=== PATIENT | female | born 1985 | race American Indian/Alaskan Native ===

== ENCOUNTER 2017-05-13 12:21 | Emergency (ER) | payer MEDICAID ==
[2017-05-13 12:38] VITALS: BP 135/77; PULSE 110; RESP 18; TEMP 99; O2SAT 98
[2017-05-13] MEDS ORDERED: Oxycodone/Acetaminophen 5/325 mg Tab ONE ×2 (13:17→13:20)
[2017-05-13] MEDS: Oxycodone/Acetaminophen 5/325 mg Tab PO STA (13:18)
--- NOTE | 2017-05-13 13:40 | ED PDOC ---
HPI: General Adult Time Seen by Provider: 05/13/17 12:46 Chief Complaint (Nursing): Lower Extremity Problem/Injury Chief Complaint (Provider): Right foot pain History Per: Patient History/Exam Limitations: no limitations Onset/Duration Of Symptoms: Days (x 2 weeks) Current Symptoms Are (Timing): Still Present Additional Complaint(s): Ramona is a 31 y/o female who states for the past 2 weeks she has had atraumatic right foot pain. States for the past year having intermittent bilateral knee pain and ankle pain, which resolves spontaneously. Patient reports she used to be an avid runner. Denies fever, trauma, rash, numbness, tingling, and history of Lyme disease. PMD: Unknown Past Medical History Reviewed: Historical Data, Nursing Documentation, Vital Signs Vital Signs: Last Vital Signs Temp 99 F 05/13/17 12:35 Pulse 110 H 05/13/17 12:35 Resp 18 05/13/17 12:35 BP 135/77 05/13/17 12:35 Pulse Ox 98 05/13/17 16:38 - Family History Family History: States: Unknown Family Hx - Home Medications Home Medications: Ambulatory Orders Medication Instructions Recorded Acetaminophen with Codeine 1 - 2 each PO Q6 PRN #12 tablet 05/13/17 [Tylenol with Codeine #3 Tablet] Cephalexin [cephalexin] 500 mg PO Q6 #28 cap 05/13/17 Naproxen [Naprosyn] 500 mg PO BID PRN #30 tab 05/13/17 - Allergies Allergies/Adverse Reactions: Allergies Allergy/AdvReac Type Severity Reaction Status Date / Time No Known Allergies Allergy Verified 05/13/17 12:35 Review of Systems ROS Statement: Except As Marked, All Systems Reviewed And Found Negative Constitutional: Negative for: Fever, Other (Trauma) Musculoskeletal: Positive for: Foot Pain (Right) Skin: Negative for: Rash Neurological: Negative for: Numbness, Other (Tingling) Physical Exam - Reviewed Nursing Documentation Reviewed: Yes Vital Signs Reviewed: Yes - Physical Exam Appears: Positive for: Well, Non-toxic, No Acute Distress Pulses-Dorsalis Pedis (L): 2+ Pulses-Dorsalis Pedis (R): 2+ Extremity: Positive for: Tenderness (There is warmth, erythema, swelling, tenderness to the dorsum of right foot), Capillary Refill (< 2 sec), Swelling. Negative for: Calf Tenderness (bilaterally), Other (Central clearing, break in skin integrity, or target shaped lesions) - Laboratory Results Result Diagrams: 05/13/17 13:45 05/13/17 13:45 - ECG O2 Sat by Pulse Oximetry: 98 (RA) Pulse Ox Interpretation: Normal - Progress ED Course And Treament: Morphine 4mg IV, zofran 4mg IV given as Toradol/percocet provided no relief. Pt. evaluated by Luciana, podiatry resident, in ED. Luciana spoke with Dr. Goetz who reviewed diagnostics and outpt f/u was recommended with Rx for Tylenol #3, naproxen, and keflex. Pt. searched on [place] [employer] aware and indicate no previous narcotic prescriptions. Pt. instructed to f/u with Dr. Goetz's office on WITHOUT FAIL. Repeat HR: 96 Medical Decision Making Medical Decision Making: Time: 13:10 Initial Plan: --Pending labs including Uric Acid stat and Lyme Disease Ab --Given Toradol and Percocet --Pending X-Ray Right Foot --Paged Podiatry for consult Time: 15:16 --Pending X-Ray Right Ankle --Given cefazolin 1 gm IV Time: 15:55 --Zofran 4 mg IV --Morphine 4 mg IV Time: 15:57 X-Ray Right Foot: FINDINGS: BONES: Normal. No fracture. JOINTS: Normal. SOFT TISSUES: Normal. OTHER FINDINGS: None. IMPRESSION: Normal right foot radiographs. Time: 16:15 X-Ray Right Ankle: FINDINGS: BONES: There is no acute fracture subluxation or dislocation appreciate this time. Heterotopic calcifications appears the soft tissues posterior to the level of the right tibial distal metaphysis. JOINTS: Normal. No osteoarthritis. Ankle mortise maintained. Talar dome intact SOFT TISSUES: As above. OTHER FINDINGS: None. IMPRESSION: No acute fracture dislocation. A small focus of heterotopic calcification is seen posterior to the right tibial distal metaphysis. Scribe Attestation: Documented by Chichi Beal, acting as a scribe for Evens Negrete PA-C. Provider Scribe Attestation: All medical record entries made by the Scribe were at my direction and personally dictated by me. I have reviewed the chart and agree that the record accurately reflects my personal performance of the history, physical exam, medical decision making, and the department course for this patient. I have also personally directed, reviewed, and agree with the discharge instructions and disposition. Disposition - Clinical Impression Clinical Impression: Cellulitis of foot - Patient ED Disposition Is Patient to be Admitted: No - Disposition Referrals: Damian Benson DPM [Staff Provider] - Disposition: Routine/Home Disposition Time: 16:47 Condition: STABLE Additional Instructions: Follow up with Dr. Goetz on WITHOUT FAIL. Call his office today to make appointment. Return to ED immediately if symptoms persist or worsen. Prescriptions: Acetaminophen with Codeine [Tylenol with Codeine #3 Tablet] 1 - 2 each PO Q6 PRN #12 tablet PRN Reason: Pain Cephalexin [cephalexin] 500 mg PO Q6 #28 cap Naproxen [Naprosyn] 500 mg PO BID PRN #30 tab PRN Reason: Pain Instructions: Cellulitis (ED) Forms: [facility] (Turkish), [facility] ED School/Work Excuse
[2017-05-13 14:13] LABS: ALB/GLOB RATIO 1.2 (1.0-2.1); ALKALINE PHOSPHATASE 66 U/L (38-126); ALT/SGPT 40 U/L (9-52); AST/SGOT 28 U/L (14-36); BILIRUBIN,TOTAL 0.3 mg/dl (0.2-1.3); BLOOD UREA NITROGEN 13 mg/dl (7-17); CALCIUM 9.2 mg/dL (8.4-10.2); CARBON DIOXIDE 27 mmol/L (22-30); CHLORIDE 107 mmol/L (98-107); GFR AFRICAN-AMERICAN > 60; GLUCOSE,RANDOM 84 mg/dL (65-105); POTASSIUM 4.3 MMOL/L (3.6-5.0); SODIUM 145 mmol/l (132-148); TOTAL PROTEIN 7.8 G/DL (6.3-8.2)
[2017-05-13 14:14] LABS: BASO % 0.9 % (0.0-2.0); EOS # 0.1 K/uL (0.0-0.7); EOS % 1.9 % (0.0-4.0); HEMATOCRIT 41.5 % (34.0-47.0); LYMPH # 1.5 K/uL (1.0-4.3); LYMPH % 34.3 % (20.0-40.0); MEAN CELL VOLUME 92.1 fl (81.0-99.0); MEAN CORPUSCULAR HEMOGLOBIN 30.9 pg (27.0-31.0); MEAN CORPUSCULAR HGB CONC 33.5 g/dL (33.0-37.0); MEAN PLATELET VOLUME 7.2 fl (7.2-11.7); MONO # 0.5 K/uL (0.0-0.8); MONO % 12.1 % (0.0-10.0); NEUT # 2.2 K/uL (1.8-7.0); NEUT % 50.8 % (50.0-75.0); NRBC % 0.1 % (0.0-0.0); RED CELL DISTRIBUTION WIDTH 12.5 % (11.5-14.5); URIC ACID 4.8 mg/Dl (2.2-7.5); WHITE BLOOD COUNT 4.3 K/uL (4.8-10.8)
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
--- NOTE | 2017-05-13 15:59 | RAD ---
PROCEDURE: Right Foot Radiographs. HISTORY: pain COMPARISON: None. FINDINGS: BONES: Normal. No fracture. JOINTS: Normal. SOFT TISSUES: Normal. OTHER FINDINGS: None. IMPRESSION: Normal right foot radiographs.
[2017-05-13] MEDS: ceFAZolin 1 GM in Sodium Chloride 0.9% 100 ML IVPB STA (16:04)
--- NOTE | 2017-05-13 16:17 | RAD ---
PROCEDURE: Right Ankle Radiographs. HISTORY: pain COMPARISON: None FINDINGS: BONES: There is no acute fracture subluxation or dislocation appreciate this time. Heterotopic calcifications appears the soft tissues posterior to the level of the right tibial distal metaphysis. JOINTS: Normal. No osteoarthritis. Ankle mortise maintained. Talar dome intact SOFT TISSUES: As above. OTHER FINDINGS: None. IMPRESSION: No acute fracture dislocation. A small focus of heterotopic calcification is seen posterior to the right tibial distal metaphysis.
[2017-05-20 00:45] LABS: 18 KD (IGG) BAND Nonreactive; 23 KD (IGG) BAND Nonreactive; 23 KD (IGM) BAND Reactive; 28 KD (IGG) BAND Nonreactive; 30 KD (IGG) BAND Nonreactive; 39 KD (IGG) BAND Nonreactive; 39 KD (IGM) BAND Nonreactive; 41 KD (IGG) BAND Reactive; 41 KD (IGM) BAND Nonreactive; 45 KD (IGG) BAND Nonreactive; 58 KD (IGG) BAND Nonreactive; 66 KD (IGG) BAND Nonreactive; 93 KD (IGG) BAND Nonreactive; LYME DISEASE INTERP (IGG) Negative (Negative)
== END 2017-05-13 17:11 | disposition home or self-care (01) ==
LOC: H.ER 12:21
DX: L03.115 Cellulitis of right lower limb (principal)

== ENCOUNTER 2017-05-14 12:00 | Emergency (ER) | payer MEDICAID, OTHER ==
[2017-05-14 12:05] VITALS: BMI 33.6
[2017-05-14 12:06] VITALS: BP 115/64; PULSE 76; RESP 17; TEMP 98; O2SAT 99
[2017-05-14] MEDS ORDERED: Naproxen 500 MG TAB PO STA (12:36)
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
[2017-05-14] MEDS ORDERED: Naproxen 500 MG TAB PO ONE (12:50)
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
== END 2017-05-14 14:08 | disposition home or self-care (01) ==
LOC: H.ER 12:00
DX: S99.921A Unspecified injury of right foot, initial encounter (principal); X50.9XXA Other and unspecified overexertion or strenuous movements or postures, initial encounter; Y92.89 Other specified places as the place of occurrence of the external cause

== ENCOUNTER 2017-11-04 20:59 | Emergency (ER) | payer MEDICAID ==
[2017-11-04 20:59] VITALS: BMI 24.7
[2017-11-04 21:11] VITALS: RESP 16
[2017-11-04] MEDS ORDERED: Sodium Chloride 0.9% 1,000 ML IV STA (21:55)
--- NOTE | 2017-11-04 22:01 | ED PDOC ---
HPI:Nausea, Vomiting, Diarrhea Time Seen by Provider: 11/04/17 21:27 Chief Complaint (Nursing): GI Problem Chief Complaint (Provider): vomiting History Per: Patient History/Exam Limitations: no limitations Onset/Duration Of Symptoms: Days (3) Current Symptoms Are (Timing): Still Present Quality Of Discomfort: "Pain" Additional History Per: Patient Additional Complaint(s): 32 y/o female presents with nausea/vomiting x 3 days. Associated upper abdominal pain, and now migrating upward to midsternal chest area. Patient states symptoms started after eating seafood over the weekend. Denies fever, shortness of breath, palpitations, changes in bowel movements, recent travel, sick contacts, leg pain/swelling. Past Medical History Reviewed: Historical Data, Nursing Documentation, Vital Signs Vital Signs: Last Vital Signs Temp 98.5 F 11/04/17 21:04 Pulse 70 11/04/17 21:04 Resp 16 11/04/17 21:04 BP 132/80 11/04/17 21:04 Pulse Ox 97 11/04/17 21:04 - Medical History PMH: No Chronic Diseases Denies: Chronic Kidney Disease - Family History Family History: States: Unknown Family Hx - Immunization History Hx Tetanus Toxoid Vaccination: No Hx Influenza Vaccination: No Hx Pneumococcal Vaccination: No - Home Medications Home Medications: Ambulatory Orders Medication Instructions Recorded Albuterol 0.083% [Albuterol 0.083% 2.5 mg IH Q4 PRN #20 neb 10/16/17 Inhal Grazyna (2.5 mg/3 ml) UD] Mask, Face [Nebulizer Aerosol Mask 1 dev XX PRN PRN #1 dev 10/16/17 Adult] Nebulizer [Aeroeclipse II] 1 each MC Q4 PRN #1 each 10/16/17 Prednisone 50 mg PO DAILY #5 tablet 10/16/17 - Allergies Allergies/Adverse Reactions: Allergies Allergy/AdvReac Type Severity Reaction Status Date / Time No Known Allergies Allergy Verified 10/16/17 06:39 Review of Systems ROS Statement: Except As Marked, All Systems Reviewed And Found Negative Cardiovascular: Positive for: Chest Pain Gastrointestinal: Positive for: Nausea, Vomiting, Abdominal Pain Physical Exam - Reviewed Nursing Documentation Reviewed: Yes Vital Signs Reviewed: Yes - Physical Exam Appears: Positive for: Well, Non-toxic, Uncomfortable Head Exam: Positive for: ATRAUMATIC, NORMAL INSPECTION, NORMOCEPHALIC Skin: Positive for: Normal Color Eye Exam: Positive for: Normal appearance ENT: Positive for: Normal ENT Inspection Cardiovascular/Chest: Positive for: Regular Rate, Rhythm Respiratory: Positive for: Normal Breath Sounds Gastrointestinal/Abdominal: Positive for: Bowel Sounds, Soft, Tenderness ( epigsatric) Back: Positive for: Normal Inspection Extremity: Positive for: Normal ROM Neurologic/Psych: Positive for: Alert, Oriented - Laboratory Results Result Diagrams: 11/04/17 22:17 11/04/17 22:17 - ECG ECG: Positive for: Viewed By Me (reviewed by ED attending) ECG Rhythm: Positive for: Sinus Rhythm O2 Sat by Pulse Oximetry: 97 - Progress ED Course And Treament: labs, ekg, chest xray, IV fluids, IV pepcid, IV zofran, IV toradol GI cocktail ordered for continued pain in midsternal chest, but patient vomited. Patient evaluated by ED attending Dr. Shelton, will order IV protonix and IV versed On re-eval, patient still with pain. CT chest with IV contrast ordered Disposition - Clinical Impression Clinical Impression: Chest pain, Nausea and vomiting - Patient ED Disposition Is Patient to be Admitted: No - Disposition Disposition Time: 06:05 Condition: STABLE Patient Signed Over To: Ashutosh Shelton Handoff Comments: pending CT
[2017-11-04 22:21] LABS: BASO # 0.1 K/uL (0.0-0.2); BASO % 1.1 % (0.0-2.0); EOS # 0.1 K/uL (0.0-0.7); EOS % 0.8 % (0.0-4.0); HEMOGLOBIN 15.4 g/dL (12.0-16.0); LYMPH # 2.6 K/uL (1.0-4.3); LYMPH % 31.6 % (20.0-40.0); MEAN CELL VOLUME 89.8 fl (81.0-99.0); MEAN CORPUSCULAR HEMOGLOBIN 30.2 pg (27.0-31.0); MEAN CORPUSCULAR HGB CONC 33.6 g/dL (33.0-37.0); MEAN PLATELET VOLUME 6.9 fl (7.2-11.7); MONO # 0.9 K/uL (0.0-0.8); MONO % 11.2 % (0.0-10.0); NEUT # 4.5 K/uL (1.8-7.0); NEUT % 55.3 % (50.0-75.0); NRBC % 0.1 % (0.0-0.0); RBC 5.11 Mil/uL (3.80-5.20); RED CELL DISTRIBUTION WIDTH 13.5 % (11.5-14.5); WHITE BLOOD COUNT 8.1 K/uL (4.8-10.8)
[2017-11-04 22:29] LABS: ALBUMIN 4.6 g/dL (3.5-5.0); CALCIUM 9.6 mg/dL (8.4-10.2); GFR AFRICAN-AMERICAN > 60; GFR NON-AFRICAN AMERICAN > 60; LIPASE 29 U/L (23-300)
[2017-11-04 22:45] LABS: ALB/GLOB RATIO 1.1 (1.0-2.1); ALT/SGPT 36 U/L (9-52); AST/SGOT 39 U/L (14-36); BLOOD UREA NITROGEN 11 mg/dl (7-17)
[2017-11-05 00:11] LABS: BARBITURATES, UR NEGATIVE (NEGATIVE); BENZODIAZEPINES, UR NEGATIVE (NEGATIVE); OPIATES, UR NEGATIVE (NEGATIVE); PHENCYCLIDINE, UR NEGATIVE (NEGATIVE)
[2017-11-05] MEDS ORDERED: Alum-Mag Hydrox-Simethicone Susp (30 mL) PO STA (00:21)
[2017-11-05] MEDS ORDERED: Atrop/Hyos/Scop/PhenoB Elixir PO ONE (00:21)
[2017-11-05] MEDS ORDERED: Alum-Mag Hydrox-Simethicone Susp (30 mL) ONE (01:50)
[2017-11-05] MEDS ORDERED: diaZEpam 10 mg/2 ml Inj IVP STA (02:50)
[2017-11-05] MEDS ORDERED: Midazolam 2 MG/2 ML VIAL IV ONE (03:01)
[2017-11-05] MEDS ORDERED: Iohexol 300 100 ML IJ ONE (04:51)
[2017-11-05] MEDS ORDERED: Sodium Chloride 0.9% 50 ML IV ONE (04:52)
--- NOTE | 2017-11-05 06:13 | CT ---
EXAM: CT Chest With Intravenous Contrast EXAM DATE/TIME: 11/05/2017 4:09 AM CLINICAL HISTORY: 32 years old, female; Pain; Chest pain; Additional info: Chest pain, epigastric pain, vomiting TECHNIQUE: Axial computed tomography images of the chest with intravenous contrast. All CT scans at this facility use one or more dose reduction techniques, viz.: automated exposure control; ma/kV adjustment per patient size (including targeted exams where dose is matched to indication; i.e. head); or iterative reconstruction technique. Coronal and sagittal reformatted images were created and reviewed. CONTRAST: 95 mL of [id number] administered intravenously. COMPARISON: CR - CHEST TWO VIEWS (PA/LAT) 2017-11-04 23:12 FINDINGS: No pulmonary embolism identified however evaluation is limited by bolus timing (the aorta is optimally opacified rather than the pulmonary arteries). No aortic dissection or aneurysm. The ascending aorta measures 2.8 cm in diameter and the descending aorta measures 2.2 cm in diameter. No pleural or pericardial effussions. No pulmonary consolidation. The visualized portions of the upper abdomen are normal. The osseous structures are normal. IMPRESSION: No acute findings.
[2017-11-05 06:38] VITALS: BP 123/78; PULSE 75; TEMP 98.3; O2SAT 98
--- NOTE | 2017-11-05 08:58 | RAD ---
HISTORY: chest pain COMPARISON: No prior. TECHNIQUE: Chest PA and lateral FINDINGS: LUNGS: No active pulmonary disease. PLEURA: No significant pleural effusion identified. No pneumothorax apparent. CARDIOVASCULAR: Normal. OSSEOUS STRUCTURES: No significant abnormalities. VISUALIZED UPPER ABDOMEN: Normal. OTHER FINDINGS: None. IMPRESSION: No acute cardiopulmonary disease appreciated.
== END 2017-11-05 06:39 | disposition home or self-care (01) ==
LOC: H.ER 20:59
DX: R07.89 Other chest pain (principal); R11.2 Nausea with vomiting, unspecified
CPT/HCPCS: 71046; 71260; 80053; 80324; 80345; 80346; 80349; 80353; 80358; 80361; 81025; 83690; 83992; 84484; 85025; 96374; 99284; C9113; J1885; J2250; J2405; J7040; Q9967

== ENCOUNTER 2018-01-22 19:06 | Emergency (ER) | payer MEDICAID ==
[2018-01-22 19:06] VITALS: BMI 24.7
[2018-01-22 19:24] VITALS: RESP 18; TEMP 98.8; O2SAT 99
[2018-01-22] MEDS ORDERED: Lactated Ringer's 1,000 ML IV STA ×2 (20:28→23:12)
[2018-01-22 20:43] LABS: BASO # 0.1 K/uL (0.0-0.2); BASO % 1.1 % (0.0-2.0); EOS # 0.3 K/uL (0.0-0.7); EOS % 3.5 % (0.0-4.0); HEMOGLOBIN 12.9 g/dL (12.0-16.0); LYMPH # 2.5 K/uL (1.0-4.3); LYMPH % 28.8 % (20.0-40.0); MEAN CELL VOLUME 90.9 fl (81.0-99.0); MEAN CORPUSCULAR HEMOGLOBIN 31.3 pg (27.0-31.0); MEAN CORPUSCULAR HGB CONC 34.4 g/dL (33.0-37.0); MONO # 0.9 K/uL (0.0-0.8); MONO % 10.1 % (0.0-10.0); NEUT # 4.9 K/uL (1.8-7.0); NEUT % 56.5 % (50.0-75.0); RBC 4.13 Mil/uL (3.80-5.20); RED CELL DISTRIBUTION WIDTH 13.2 % (11.5-14.5); WHITE BLOOD COUNT 8.6 K/uL (4.8-10.8)
--- NOTE | 2018-01-22 21:06 | ED PDOC ---
HPI: Female Pain Time Seen by Provider: 01/22/18 19:49 Chief Complaint (Nursing): Abdominal Pain Chief Complaint (Provider): Pelvic Pain History Per: Patient History/Exam Limitations: no limitations Onset/Duration Of Symptoms: Days (x2 weeks), Worse Since (onset) Current Symptoms Are (Timing): Still Present Quality Of Discomfort: Cramping Associated Symptoms: Back Pain. denies: Other (vaginal bleeding or discharge) Additional Complaint(s): Ramona Hernandez is a 32 year old female, with no significant past medical history, who presents to the emergency department complaining of a worsening pelvic pain onset for x2 weeks. Patient states the pain is central and radiates to the back. Patient reports it feels like severe menstrual cramps or contractions from labor. Patient is A3, she had 2 miscarriages, and 1 termination, she believes to be a month and a half . She has not had an ultrasound for this and states her periods are irregular. She denies any vaginal bleeding or discharge. No further medical complaints. PMD: Dr. Salima Bell Abnormal Vaginal Bleeding: No : 6 Para: 2 Miscarriage: 3 Past Medical History Reviewed: Historical Data, Nursing Documentation, Vital Signs Vital Signs: Last Vital Signs Temp 98.8 F 01/22/18 19:20 Pulse 90 01/22/18 19:20 Resp 18 01/22/18 19:20 BP 118/78 01/22/18 19:20 Pulse Ox 99 01/22/18 19:20 - Medical History PMH: No Chronic Diseases Denies: Chronic Kidney Disease - Surgical History Other surgeries: foot surgery - Family History Family History: States: Diabetes, Hypertension Other Family History: ectopic - Social History Current smoker - smoking cessation education provided: Yes (light smoker <10 cigarettes daily) Alcohol: Occasional Drugs: Denies - Immunization History Hx Tetanus Toxoid Vaccination: No Hx Influenza Vaccination: No Hx Pneumococcal Vaccination: No - Home Medications Home Medications: Ambulatory Orders Medication Instructions Recorded Albuterol 0.083% [Albuterol 0.083% 2.5 mg IH Q4 PRN #20 neb 10/16/17 Inhal Grazyna (2.5 mg/3 ml) UD] Mask, Face [Nebulizer Aerosol Mask 1 dev XX PRN PRN #1 dev 10/16/17 Adult] Nebulizer [Aeroeclipse II] 1 each MC Q4 PRN #1 each 10/16/17 Prednisone 50 mg PO DAILY #5 tablet 10/16/17 Omeprazole 20 mg PO DAILY #30 capsule. 11/05/17 Ondansetron [Zofran] 4 mg PO Q8H #12 tab 11/05/17 Acetaminophen [Tylenol Extra 1,000 mg PO Q6 PRN #100 tablet 01/23/18 Strength] Cyclobenzaprine [Flexeril] 5 mg PO Q8 PRN #15 tab 01/23/18 - Allergies Allergies/Adverse Reactions: Allergies Allergy/AdvReac Type Severity Reaction Status Date / Time No Known Allergies Allergy Verified 10/16/17 06:39 Review of Systems ROS Statement: Except As Marked, All Systems Reviewed And Found Negative Genitourinary Female: Positive for: Pelvic Pain (radiates to the back ). Negative for: Vaginal Discharge, Vaginal Bleeding Musculoskeletal: Positive for: Back Pain Physical Exam - Reviewed Nursing Documentation Reviewed: Yes Vital Signs Reviewed: Yes - Physical Exam Appears: Positive for: Uncomfortable, In Acute Distress Head Exam: Positive for: ATRAUMATIC, NORMOCEPHALIC Skin: Positive for: Normal Color, Warm, Dry Eye Exam: Positive for: Normal appearance Neck: Positive for: Painless ROM Gastrointestinal/Abdominal: Positive for: Tenderness (suprapubic tenderness to palpation). Negative for: Mass, Guarding, Rebound Pelvic Exam: Positive for: External Exam Normal, Speculum Exam Normal, Tender Uterus, Other (Assisted by HORACIO Lopes). Negative for: Active Bleeding, Blood, Tender W/Cervical Motion Back: Negative for: L CVA Tenderness, R CVA Tenderness, Vertebral Tenderness Extremity: Positive for: Normal ROM. Negative for: Deformity, Swelling Neurologic/Psych: Positive for: Alert, Oriented - Laboratory Results Result Diagrams: 01/22/18 20:39 01/22/18 20:39 - ECG O2 Sat by Pulse Oximetry: 99 (RA) Pulse Ox Interpretation: Normal Medical Decision Making Medical Decision Making: Initial Impression: Pelvic pain in . Differential includes ectopic , threatened , dehydration, UTI, cystitis, ovarian cysts Initial Plan: --Beta-HCG, Quantitative --CMP --Drug screen, urine --Urine --Urine dipstick --CBC w/ differential --Flexeril 10 mg PO --Lactated Ringers 1,000 ml IV 1,000 mls/hr --Tylenol 325mg tab 975 mg PO --OB Transvaginal [US] --Reevaluation Labs unremarkable. EXAM: US , Transvaginal CLINICAL HISTORY: 32 years old, female; Pain; Other: Pelvic pain; Gestational age or lmp: Unknown ; ; Additional info: Severe pelvic pain TECHNIQUE: Real-time transabdominal and transvaginal obstetrical ultrasound of the maternal pelvis and a first trimester with image documentation. Transvaginal imaging was used for better evaluation of the fetus and adnexa. COMPARISON: No relevant prior studies available. FINDINGS: Gestation: The uterus contains a normal gestational sac measuring 1.9 cm. A normal pole is identified measuring 5 mm. A normal yolk sac is identified 3 mm. Measurements correlate with a mean gestational age of 6 weeks 2 days. The estimated date of delivery is 2017. Embryonic/ cardiac activity is identified, at a rate of 132 beats per minute. Placenta/amniotic fluid: Cannot be adequately evaluated due to the early gestational age. Uterus/cervix: Unremarkable. No myometrial mass. Ovaries: The left ovary is unremarkable measuring 2.5 x 1.8 x 2.8 cm with normal flow. The right ovary is identified transabdominally and appears grossly unremarkable. Free fluid: No free fluid. IMPRESSION: Live intrauterine , with no evidence of early complications. Thank you for allowing us to participate in the care of your patient. Dictated and Authenticated by: Yenni Nichols MD 01/22/2018 11:39 PM Eastern Time ([place] & [place]) 11pm On reeval pt still in persistent pelvic crampy pain. Addn'l fluid bolus ordered. DW pt findings. Concerned about severity of pain despite normal findings. RADHA Man. [id number] Pt evaluated by Dr Man in ER, who reports no other gynecological management necessary at this time. Tylenol 650mg q6h and aggressive fluids. Pt to follow up with primary buckle coverer in 1-2 days without fail. Labs and US report given directly to patient for continued management with primary buckle coverer. Scribe Attestation: Documented by Klaus Mullins, acting as a scribe for Iram Lucas MD Provider Scribe Attestation: All medical record entries made by the Scribe were at my direction and personally dictated by me. I have reviewed the chart and agree that the record accurately reflects my personal performance of the history, physical exam, medical decision making, and the department course for this patient. I have also personally directed, reviewed, and agree with the discharge instructions and disposition. Disposition - Clinical Impression Clinical Impression: Abdominal pain during Counseled Patient/Family Regarding: Studies Performed, Diagnosis, Need For Followup, Rx Given - Disposition Referrals: Salima Bell PA-C [Advanced Practice Nurse] - (CALL TOMORROW FOR FOLLOW UP APPOINTMENT IN 1-2 DAYS) Disposition: Routine/Home Disposition Time: 23:58 Condition: STABLE Additional Instructions: TAKE TYLENOL EVERY 6 HOURS FOR PAIN AND DRINK PLENTY OF HYDRATING FLUIDS TAKE FLEXERIL FOR ANY BACK TIGHTNESS Prescriptions: Acetaminophen [Tylenol Extra Strength] 1,000 mg PO Q6 PRN #100 tablet PRN Reason: FEVER OR PAIN Cyclobenzaprine [Flexeril] 5 mg PO Q8 PRN #15 tab PRN Reason: muscle spasm Instructions: - The Second Month Forms: [facility] ED School/Work Excuse
[2018-01-22 21:16] LABS: ALB/GLOB RATIO 1.1 (1.0-2.1); ALBUMIN 3.7 g/dL (3.5-5.0); ALT/SGPT 40 U/L (9-52); AST/SGOT 21 U/L (14-36); BARBITURATES, UR NEGATIVE (NEGATIVE); BENZODIAZEPINES, UR NEGATIVE (NEGATIVE); BLOOD UREA NITROGEN 10 mg/dl (7-17); CALCIUM 9.2 mg/dL (8.4-10.2); GFR AFRICAN-AMERICAN > 60; GFR NON-AFRICAN AMERICAN > 60; OPIATES, UR NEGATIVE (NEGATIVE); PHENCYCLIDINE, UR NEGATIVE (NEGATIVE)
--- NOTE | 2018-01-22 23:39 | US ---
EXAM: US , Transvaginal CLINICAL HISTORY: 32 years old, female; Pain; Other: Pelvic pain; Gestational age or lmp: Unknown; ; Additional info: Severe pelvic pain TECHNIQUE: Real-time transabdominal and transvaginal obstetrical ultrasound of the maternal pelvis and a first trimester with image documentation. Transvaginal imaging was used for better evaluation of the fetus and adnexa. COMPARISON: No relevant prior studies available. FINDINGS: Gestation: The uterus contains a normal gestational sac measuring 1.9 cm. A normal pole is identified measuring 5 mm. A normal yolk sac is identified 3 mm. Measurements correlate with a mean gestational age of 6 weeks 2 days. The estimated date of delivery is 09/15/2018. Embryonic/ cardiac activity is identified, at a rate of 132 beats per minute. Placenta/amniotic fluid: Cannot be adequately evaluated due to the early gestational age. Uterus/cervix: Unremarkable. No myometrial mass. Ovaries: The left ovary is unremarkable measuring 2.5 x 1.8 x 2.8 cm with normal flow. The right ovary is identified transabdominally and appears grossly unremarkable. Free fluid: No free fluid. IMPRESSION: Live intrauterine , with no evidence of early complications.
[2018-01-23 00:45] VITALS: BP 117/61; PULSE 84
--- NOTE | 2018-01-23 05:06 | CON ---
EMERGENCY ROOM CONSULTATION DATE: HISTORY OF PRESENT ILLNESS: This is a 32-year-old G6, P2-0-3-2, last menstrual period some time in 11/2017 who reports that she started having pelvic cramping about a week and a half ago. She reports regular bowel movements. Denies dysuria. Denies nausea or vomiting. The patient reports that she did know that she is . PAST MEDICAL HISTORY: Healthy. PAST SURGICAL HISTORY: Right ankle surgery in 2017. PAST GYNECOLOGIC HISTORY: Menarche at 15, gets her period about every month. The patient denies STDs or any abnormal Paps. PAST OBSTETRICAL HISTORY: Vaginal delivery x2, two miscarriages and 1 termination. MEDICATIONS: None. ALLERGIES: NO KNOWN DRUG ALLERGIES. The patient does not have an OB and found out she was with her family medicine doctor. FAMILY HISTORY: Mother had masses in her tubes? and maternal aunt breast cancer. SOCIAL HISTORY: The patient quit smoking when she was found out she was . She denies alcohol use and denies illicit drug use. PHYSICAL EXAMINATION: VITAL SIGNS: Afebrile. Vital signs are stable. GENERAL: The patient appears in no acute distress. HEART: Regular rate and rhythm. LUNGS: Clear to auscultation bilaterally. ABDOMEN: Soft, nontender, and obese. PELVIC: Vaginal exam; no cervical motion tenderness. No adnexal masses palpated. LABORATORY DATA: Her white blood cell count is normal at 8.6 and hemoglobin 12.9. Her comprehensive metabolic panel is within normal limits. Beta hCG Quant is 21,786 and her urine drug screen is negative. Pelvic ultrasound reveals a live intrauterine with no evidence of early complications specifically the uterus contains a normal gestational sac and a normal pole and normal yolk sac is identified. The mean gestational age is 6 weeks and 2 days with an estimated delivery date of 09/15/2018. The heart activity is 132 beats per minute. The ovaries are unremarkable. There is no free fluid. ASSESSMENT AND PLAN: This is a 32-year-old G6, P2-0-3-2, who presents with pelvic cramping that radiates to her back with an intrauterine and a normal white count and no free fluid in the abdomen. The patient does report that she walks a lot because she works in [employer]. The patient may have with walking. Recommended that she can take Tylenol, may be have a warm shower and get rest and this does not seem to be related to any obstetrical complication. Davon Man MD
== END 2018-01-23 01:00 | disposition home or self-care (01) ==
LOC: H.ER 19:06
DX: O26.899 Other specified pregnancy related conditions, unspecified trimester (principal)
CPT/HCPCS: 76817; 80053; 80324; 80345; 80346; 80349; 80353; 80358; 80361; 81025; 83992; 84702; 85025; 96360; 99285; J7120

== ENCOUNTER 2018-04-17 00:15 | Emergency (ER) | payer MEDICAID ==
[2018-04-17 00:16] VITALS: BMI 24.7
[2018-04-17 00:21] VITALS: RESP 16
[2018-04-17] MEDS ORDERED: Tdap Vaccine 0.5 ml Vial (10-64 yrs) IM ONE ×2 (00:51→05:06)
--- NOTE | 2018-04-17 01:41 | ED PDOC ---
HPI: Psych/Substance Abuse Time Seen by Provider: 04/17/18 00:31 Chief Complaint (Nursing): Alcohol Ingestion Chief Complaint (Provider): Alcohol Ingestion History Per: Patient, EMS History/Exam Limitations: no limitations Onset/Duration Of Symptoms: Hrs Current Symptoms Are (Timing): Still Present Additional Complaint(s): Ramona Hernandez is a 32 year old female with no past medical history who was brought to the ED by EMS for evaluation of injury s/p fall onset prior to arrival. Patient states that she was drinking tonight and while trying to get into a taxi lost her balance and hit her forehead when she fell. She states that she is unsure of loss of consciousness but adds that she had an a week ago at a clinic. She offers no other medical complaints and denies any neck pain, back pain, extremity injury, fever, N/V, abdominal pain, vaginal bleeding. Has no other complaints. PMD: Vitaly Wei Past Medical History Reviewed: Historical Data, Nursing Documentation, Vital Signs Vital Signs: Last Vital Signs Temp 98.0 F 04/17/18 00:18 Pulse 91 H 04/17/18 00:18 Resp 16 04/17/18 00:18 BP 114/80 04/17/18 00:18 Pulse Ox 96 04/17/18 00:18 - Medical History PMH: No Chronic Diseases Denies: Chronic Kidney Disease - Surgical History Surgical History: No Surg Hx - Family History Family History: States: Diabetes, Hypertension - Social History Current smoker - smoking cessation education provided: Yes Alcohol: Social Drugs: Denies - Immunization History Hx Tetanus Toxoid Vaccination: No Hx Influenza Vaccination: No Hx Pneumococcal Vaccination: No - Home Medications Home Medications: Ambulatory Orders Medication Instructions Recorded Albuterol 0.083% [Albuterol 0.083% 2.5 mg IH Q4 PRN #20 neb 10/16/17 Inhal Grazyna (2.5 mg/3 ml) UD] Mask, Face [Nebulizer Aerosol Mask 1 dev XX PRN PRN #1 dev 10/16/17 Adult] Nebulizer [Aeroeclipse II] 1 each MC Q4 PRN #1 each 10/16/17 Prednisone 50 mg PO DAILY #5 tablet 10/16/17 Omeprazole 20 mg PO DAILY #30 capsule. 11/05/17 Ondansetron [Zofran] 4 mg PO Q8H #12 tab 11/05/17 Acetaminophen [Tylenol Extra 1,000 mg PO Q6 PRN #100 tablet 01/23/18 Strength] Cyclobenzaprine [Flexeril] 5 mg PO Q8 PRN #15 tab 01/23/18 - Allergies Allergies/Adverse Reactions: Allergies Allergy/AdvReac Type Severity Reaction Status Date / Time No Known Allergies Allergy Verified 04/17/18 00:18 Review of Systems ROS Statement: Except As Marked, All Systems Reviewed And Found Negative Constitutional: Positive for: Other (head injury) Gastrointestinal: Negative for: Abdominal Pain Genitourinary Female: Negative for: Vaginal Bleeding, Pelvic Pain Neurological: Positive for: Other (unknown loss of consciousness) Physical Exam - Reviewed Nursing Documentation Reviewed: Yes Vital Signs Reviewed: Yes - Physical Exam Comments: GENERAL APPEARANCE: Patient is awake, alert, oriented x 3, in no acute distress. Smells of alcohol. SKIN: Warm, dry; (-) cyanosis; (-) rash. HEAD: (-) scalp swelling or tenderness, (-) temporal artery tenderness. (+) 5 cm hematoma with 3 cm abrasion to forehead. EYES: (-) conjunctival pallor, (-) scleral icterus. (+) conjunctival injection. ENMT: (-) sinus tenderness; mucous membranes are moist. NECK: (-) tenderness, (-) stiffness, (-) lymphadenopathy. CHEST AND RESPIRATORY: (-) rales, (-) rhonchi, (-) wheezes; breath sounds equal bilaterally. HEART AND CARDIOVASCULAR: (-) irregularity; (-) murmur, (-) gallop. ABDOMEN AND GI: Soft; (-) tenderness. EXTREMITIES: (-) deformity. NEURO AND PSYCH: Mental status as above. 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 Strength - ECG O2 Sat by Pulse Oximetry: 96 (RA) Pulse Ox Interpretation: Normal Medical Decision Making Medical Decision Making: Time: 00:31 Plan: --CT head --Alcohol Serum --Glucose, POC--Adacel 0.5 ml IM Patient's boyfriend is with her in the ER. He is sober and was with the patient the entire night and witnessed the fall and injury. Abrasions to forehead cleaned and dressed. FS 106 Etoh 392 Hcg (-) CT head : FINDINGS: Brain: Unremarkable. No hemorrhage. No significant white matter disease. No edema. Ventricles: Unremarkable. No ventriculomegaly. Bones/joints: Unremarkable. No acute fracture. Soft tissues: Right anterior frontal soft tissue scalp contusion. Sinuses: Unremarkable as visualized. No acute sinusitis. Mastoid air cells: Unremarkable as visualized. No mastoid effusion. IMPRESSION: No acute findings. Dictated and Authenticated by: Julissa Carpenter MD 04/17/2018 1:27 AM Eastern Time ([place] & [place]) 0130 Will observe the patient in the ER until she is more sober. 0300 Patient is sleeping comfortably, breathing is easy and unlabored. 0500 On re-evaluation, patient is awake, alert, no slurred speech, no tremors. Able to stand up and ambulate with a steady gait. Diagnostic results d/w the patient and her boyfriend in great detail. Patient's boyfriend will take the patient home via taxi and advised to continue to observe the patient at home. Based on history, exam and diagnostic results, plan will be for outpatient follow up. Patient instructed to follow-up with pmd in 1-2 days without fail. Return to the emergency room at any time for any new or worsening symptoms. Scribe Attestation: Documented by, Erica Pendleton acting as a scribe for Mitra Bartholomew PA-C. Provider Scribe Attestation: All medical record entries made by the Scribe were at my direction and personally dictated by me. I have reviewed the chart and agree that the record accurately reflects my personal performance of the history, physical exam, medical decision making, and the department course for this patient. I have also personally directed, reviewed, and agree with the discharge instructions and disposition. Disposition - Clinical Impression Clinical Impression: Alcohol intoxication, Head trauma - Patient ED Disposition Is Patient to be Admitted: No Counseled Patient/Family Regarding: Studies Performed, Diagnosis, Need For Followup - Disposition Disposition: Routine/Home Disposition Time: 05:30 Condition: STABLE Additional Instructions: Thank you for letting us take care of you today. You were treated for head trauma, alcohol intoxication. The emergency medical care you received today was directed at your acute symptoms. Return to the Emergency Department if your symptoms worsen, do not improve, or if you have any other problems. Please contact your doctor in 2 days for re-evaluation and follow up. Bring any paperwork you were given at discharge with you along with any medications you are taking to your follow up visit. Our treatment cannot replace ongoing medical care by a primary care provider (PCP) outside of the emergency department. Thank you for allowing the [facility] team to be part of your care today. 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
[2018-04-17 05:09] VITALS: BP 116/78; PULSE 83; TEMP 97.7
[2018-04-17 05:17] VITALS: O2SAT 96
--- NOTE | 2018-04-17 08:14 | CT ---
PROCEDURE: CT HEAD WITHOUT CONTRAST. HISTORY: fall, trauma COMPARISON: None available. TECHNIQUE: Axial computed tomography images were obtained through the head/brain without intravenous contrast. Radiation dose: Total exam DLP = 1028.37 mGy-cm. This CT exam was performed using one or more of the following dose reduction techniques: Automated exposure control, adjustment of the mA and/or kV according to patient size, and/or use of iterative reconstruction technique. FINDINGS: HEMORRHAGE: No intracranial hemorrhage. BRAIN: No mass effect or edema. No atrophy or chronic microvascular ischemic changes. VENTRICLES: Unremarkable. No hydrocephalus. CALVARIUM: Unremarkable. PARANASAL SINUSES: Unremarkable as visualized. No significant inflammatory changes. MASTOID AIR CELLS: Unremarkable as visualized. No inflammatory changes. OTHER FINDINGS: None. IMPRESSION: No acute intracranial abnormalities. No significant findings to account for the clinical presentation. Concordant results (preliminary interpretation) provided by [facility]. Procedure Completed: 01:12 Preliminary ([facility]) Report: Dictated and Authenticated: 01:27 Final Interpretation: 08:13
== END 2018-04-17 05:28 | disposition home or self-care (01) ==
LOC: H.ER 00:15
DX: F10.129 Alcohol abuse with intoxication, unspecified (principal); S00.81XA Abrasion of other part of head, initial encounter; Y92.89 Other specified places as the place of occurrence of the external cause; Y90.8 Blood alcohol level of 240 mg/100 ml or more